=== PATIENT | male | born 1995 | race Caucasian/White ===

== ENCOUNTER 2016-07-30 17:00 | Emergency (ER) | payer SELFPAY ==
[~2016-07-30] VITALS: Ht 172.7 cm; Wt 81.8 kg
[~2016-07-30 17:00] MED LIST: MOTRIN 600600 MG/TAB PO
[2016-07-30 17:01] VITALS: BP 138/99; PULSE 99; TEMP 97.9
== END 2016-07-30 18:45 | disposition home or self-care (01) ==
LOC: COL.ER 17:00
DX: S09.90XA Unspecified injury of head, initial encounter (principal); S01.01XA Laceration without foreign body of scalp, initial encounter; Y00.XXXA Assault by blunt object, initial encounter; Y92.009 Unspecified place in unspecified non-institutional (private) residence as the place of occurrence of the external cause; Z23 Encounter for immunization

== ENCOUNTER → 2016-08-08 | Emergency (ER) | payer SELFPAY ==
[2016-08-08 20:26] VITALS: BP 116/76; PULSE 60; TEMP 98
== END ==
LOC: COL.ER 20:23
DX: Z48.02 Encounter for removal of sutures (principal)